=== PATIENT | female | born 1960 ===

== ENCOUNTER 2017-06-07 00:27 | Inpatient (IN) | payer BC ==
[2017-06-07] VITALS (20 sets, daily range): BP systolic 91–173; BP diastolic 42–88
[~2017-06-07] VITALS: Ht 170.2 cm; Wt 73.0 kg
[~2017-06-07 00:27] MED LIST: CHOL10005 PO; LEVO50TA86 PO
[2017-06-07] MEDS ORDERED: THROMBIN (BOVINE) 20,000 UNIT VIAL ONE (06:10)
[2017-06-07] MEDS ORDERED: ACETAMINOPHEN(*)1000 MG/100 ML 100 ML IVPB ONE (06:15)
[2017-06-07] MEDS ORDERED: PROPOFOL(*)1000 MG/100 ML VIAL 100 ML ONE (06:20)
[2017-06-07] MEDS ORDERED: METOCLOPRAMIDE 10 MG/2 ML SDV ONE (07:49)
[2017-06-07] MEDS ORDERED: LIDOCAINE MPF 1% 5 ML VIAL ONE ×2 (07:49→13:55)
[2017-06-07] MEDS ORDERED: DEXAMETHASONE SOD PHOS 10MG/ML ONE (07:49)
[2017-06-07] MEDS ORDERED: PROPOFOL EMUL(*) 10MG/ML 20 ML 0 ML ONE (07:49)
[2017-06-07] MEDS ORDERED: ONDANSETRON 4 MG/2 ML VIAL ONE ×2 (07:49→13:55)
[2017-06-07] MEDS ORDERED: fentaNYL CITR 250 MCG/5 ML AMP ONE (07:50)
[2017-06-07] MEDS ORDERED: LIDOCAINE/SOD BICARB 8.4% SYR ID ONE (09:30)
[2017-06-07] MEDS ORDERED: NORMOSOL R SOLN(*) 1000 ML BAG 1,000 ML IV PRN (09:30)
[2017-06-07] MEDS ORDERED: MIDAZOLAM 2 MG/2 ML VIAL IVP PRN (09:30)
[2017-06-07] MEDS ORDERED: FAMOTIDINE 20 MG TAB PO ONE (09:30)
[2017-06-07] MEDS ORDERED: ceFAZolin(*) 2GM/D5W 50ML 50 ML IVPB ONE (09:30)
[2017-06-07] MEDS ORDERED: ROCURONIUM BROM 10 MG/ML 5 ML ONE (11:00)
[2017-06-07] MEDS ORDERED: NS 0.9% IRRIGATION 1000ML PLCT IR ONE (11:10)
[2017-06-07] MEDS ORDERED: ePHEDrine 25 MG/5 ML DISP.SYR IVP ONE (11:53)
[2017-06-07] MEDS ORDERED: NALOXONE HCL 0.4 MG/ML VIAL ONE (13:23)
[2017-06-07] MEDS ORDERED: PROMETHAZINE 25 MG/ML 1 ML AMP ONE (13:51)
[2017-06-07] MEDS ORDERED: PROPOFOL EMUL(*) 10MG/ML 20 ML 20 ML ONE (13:55)
[2017-06-07] MEDS ORDERED: ROPIVACAINE 0.2% 20 ML VIAL ONE (13:55)
[2017-06-07] MEDS ORDERED: DEXAMETHASONE SOD 4 MG/ML VIAL ONE (13:55)
[2017-06-07] MEDS ORDERED: fentaNYL CITR 100 MCG/2 ML AMP ONE (13:56)
[2017-06-07] MEDS ORDERED: LR(*) 1000 ML BAG 1,000 ML IV PRN (14:00)
[2017-06-07] MEDS ORDERED: BENZOCAINE/MENTHOL 1 EACH LOZG PO PRN (14:00)
[2017-06-07] MEDS ORDERED: DIAZEPAM 5 MG TAB PO PRN (14:00)
[2017-06-07] MEDS ORDERED: FLUSH 10 ML SYR IVP PRN (14:00)
[2017-06-07] MEDS ORDERED: diphenhydrAMINE 25 MG CAP PO PRN (14:00)
[2017-06-07] MEDS ORDERED: ACETAMINOPHEN 500 MG TAB PO PRN (14:00)
[2017-06-07] MEDS ORDERED: oxyCODONE HCL 5 MG CAP PO PRN (14:00)
[2017-06-07] MEDS ORDERED: APAP/HYDROCODONE 325/5 TAB PO PRN (14:00)
[2017-06-07] MEDS ORDERED: ACETAMINOPHEN(*)1000 MG/100 ML 100 ML IVPB PRN (14:00)
[2017-06-07] MEDS ORDERED: BISACODYL 10 MG SUPP PR PRN (14:00)
[2017-06-07] MEDS ORDERED: MAGNESIUM HYDROXIDE* 30ML UDCP PO PRN (14:00)
[2017-06-07] MEDS ORDERED: LR(*) 1000 ML BAG 1,000 ML ONE (14:02)
--- NOTE | 2017-06-07 14:47 | RADIOLOGY IMAGING REPORT ---
[place] [facility] [place] NAME: Tate Garcia : 1960 MR: [id number] V: [id number] EXAM DATE: ORDERING PHYSICIAN: YOUSUF ABTISTA TECHNOLOGIST: Location: [facility] [place] Patient: Tate Garcia : 1960 Visit/Account:[id number] Date of Sevice: 06/07/2017 Exam type: LUMBAR SPINE 1 VIEW History: L4-5 FUSION Comparison: None. Findings: Two prone crosstable lateral intraoperative views lumbar spine were submitted demonstrating posterior fusion at L4 and L5 with the aid of pedicle screws and short segment posterior fixation rods. Surgi corina instruments and sponge markers project over the lower back on this intraoperative study. IMPRESSION: 1. As above Report Dictated By: Meghan Walker MD at 06/07/2017 2:42 PM Report E-Signed By: Meghan Walker MD at 06/07/2017 2:43 PM WSN:[email or web address]
[2017-06-07] MEDS: HYDROmorphone HCL 2 MG/ML SDV IVP PRN ×2 (15:04→18:36)
--- NOTE | 2017-06-07 15:20 | Hospitalist Consultation ---
History of Present Illness Requesting Physician Dr. Montalvo Reason for Consult Medication Management Chief Complaint s/p lumbar laminectomy History of Present Illness She was admitted s/p lumbar laminectomy. It is reported that the surgery went well and without complication. She has a medical history of hypothyroidism. 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 Home Meds Reported Medications Cholecalciferol (Vitamin D3) (VITAMIN D3) 1,000 Unit Tablet, 5000 UNIT PO DAILY , TAB 06/01/17 Levothyroxine Sodium (LEVOTHYROXINE SODIUM) 50 Mcg Tablet, 50 MCG PO QDAY, TAB 06/01/17 Allergies: Coded Allergies: codeine (Verified Allergy, Mild, HIVES, 06/01/17) meperidine (Verified Allergy, Mild, INCREASED HEART RATE, 06/01/17) secobarbital (Verified Allergy, Mild, INCREASED HEART RATE, 06/01/17) Tetracyclines (Verified Adverse Reaction, Mild, NAUSEA, 06/01/17) morphine (Verified Adverse Reaction, Mild, NAUSEA, 06/01/17) Hx Smoking: No Caffeine Intake: Tea, Soda Caffeine/Cups Per Day: 2-3 CUPS A DAY Hx Alcohol Use: Yes (RARELY) Hx Substance Use Disorder: No History of IV Drug Use: No Review of Systems All Systems Reviewed/Normal: Yes, Except as Noted Musculoskeletal: Pain Exam Vital Signs Vital Signs Date Time Temp Pulse Resp B/P (MAP) Pulse Ox O2 Delivery O2 Flow Rate FiO2 06/07/17 08:20 98.8 87 16 151/82 (105) 93 Room Air General Appearance: Alert, Awake, No Acute Distress, Afebrile Cardiovascular: Regular Rate and Rhythm Respiratory: No Respiratory Distress, Clear to Auscultation Extremities: No Edema Psych: Alert & Oriented X3, Appropriate Mood & Affect Assessment and Plan Problems: (1) S/P lumbar laminectomy Status: Acute Assessment & Plan: Followed by Dr. Montalvo. 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 Venous Thromboembolism Antithrombotics Is Pt On Any Antithrombotics?: No Prophylaxis Tx Contraindicated Pharmacological Contraindicati: Surgical Contraindication NELSON PALACIO SPOOL WINDER Jun 07, 2017 15:20
[2017-06-07] MEDS: ONDANSETRON 4 MG/2 ML VIAL IVP PRN (17:07)
[2017-06-07] MEDS: ceFAZolin(*) 2GM/D5W 50ML 50 ML IVPB SCH (19:25)
[2017-06-07] MEDS ORDERED: ONDANSETRON 4 MG/2 ML VIAL IVP ONE (20:40)
[2017-06-07] MEDS: DOCUSATE SODIUM 100 MG CAP PO SCH (21:21)
[2017-06-08] MEDS: ceFAZolin(*) 2GM/D5W 50ML 50 ML IVPB SCH ×2 (03:13→10:25)
[2017-06-08 03:14] VITALS: BP 102/52
[2017-06-08] MEDS ORDERED: LEVOTHYROXINE SOD 0.05 MG TAB PO SCH (06:00)
[2017-06-08 07:30] VITALS: BP 95/42
[2017-06-08] MEDS ORDERED: DOCU240C84 PO (08:17)
[2017-06-08] MEDS ORDERED: LOR5/325 PO (08:17)
[2017-06-08] MEDS ORDERED: DIA5 PO (08:21)
--- NOTE | 2017-06-08 09:00 | Hospitalist Progress Note ---
Subjective Progress Notes Subjective She has no complaints this morning. Patient Complains of: Cardiovascular: No: Chest Pain Respiratory: No: Shortness of Breath Physical Exam Vital Signs Date Time Temp Pulse Resp B/P (MAP) Pulse Ox O2 Delivery O2 Flow Rate FiO2 06/08/17 07:43 64 06/08/17 07:30 98.2 89 18 95/42 (59) Nasal Cannula 1.0 General Appearance: Alert, Awake, No Acute Distress, Afebrile Cardiovascular: Regular Rate and Rhythm Respiratory: No Respiratory Distress, Clear to Auscultation Psych: Alert & Oriented X3, Appropriate Mood & Affect Assessment and Plan Problems: (1) S/P lumbar laminectomy Status: Acute Assessment & Plan: Followed by Dr. Montalvo. She will be sent home with oxygen. Her room air saturation was 64% on room air. She will follow up with PCP in [place] for further evaluation of oxygen needs. 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 Exam Sepsis Risk: No Definite Risk NELSON PALACIO PAPER HANGER Jun 08, 2017 09:00
--- NOTE | 2017-06-08 09:24 | RADIOLOGY IMAGING REPORT ---
FACILITY: [facility] - [place] PATIENT NAME: Tate Garcia : 1960 MR: [id number] V: [id number] EXAM DATE: ORDERING PHYSICIAN: YOUSUF BATISTA TECHNOLOGIST: Location: Patient: Tate Garcia : 1960 Visit/Account:[id number] Date of Sevice: 06/08/2017 Exam type: LUMBAR SPINE 2 OR 3 VIEW History: One day postop L4-5 thalamic effusion Comparison: June 07, 2017. Findings: AP and lateral views lumbar spine demonstrate posterior lumbar interbody fusion at L4-5 with aid of p edicle screws and short segment posterior fixation rods. There also appears to be posterior decompre ssion at L4 There is an 8 mm anterolisthesis of L4 with respect L5 and mild disc space narrowing L4-5 . IMPRESSION: 1. As above Report Dictated By: Meghan Walker MD at 06/08/2017 8:51 AM Report E-Signed By: Meghan Walker MD at 06/08/2017 9:19 AM WSN:[email or web address]
[2017-06-08] MEDS: DOCUSATE SODIUM 100 MG CAP PO SCH (09:40)
[2017-06-08 10:34] VITALS: Ht 170.2 cm; Wt 73.0 kg
[2017-06-08] MEDS: ONDANSETRON 4 MG/2 ML VIAL IVP PRN (11:14)
--- NOTE | 2017-06-08 15:07 | OPERATIVE REPORT 1 ---
EVENT DATE: June 07, 2017 SURGEON: Sam Montalvo MD ANESTHESIOLOGIST: Eduardo Knight MD ANESTHESIA: General endotracheal anesthesia. INGOT CAR OPERATOR: CAT Kate PREOPERATIVE DIAGNOSIS L4-L5 spinal stenosis with spondylolisthesis and neurogenic claudication. POSTOPERATIVE DIAGNOSIS L4-L5 spinal stenosis with spondylolisthesis and neurogenic claudication. PROCEDURE PERFORMED L4-L5 laminectomy and posterolateral instrumented fusion. INTRAVENOUS FLUIDS 1800 mL ESTIMATED BLOOD LOSS 125 mL IMPLANTS USED Reline pedicle screws 6.5 x 40 mm from [employer] times four, 45 mm connecting rods from [employer] times two, and locking caps from [employer] times four. SPECIMENS None. DRAINS None. COMPLICATIONS None. DISPOSITION Post-anesthesia care unit. INDICATIONS FOR SURGERY Ms. Garcia is a 56-year-old female who presented with a long history of left greater than right radiating pain, numbness, and tingling in an L5 distribution. She had undergone physical therapy, trials of medications with no success. She was ultimately sent for bilateral L5 nerve root epidural steroid injections which gave her excellent relief for about three weeks. Symptoms then returned, and in addition to them being present on the left, started becoming more significant on the right. Her physical examination was essentially normal, but her imaging studies showed a grade 1 spondylolisthesis at L4-L5 with [id number] bilateral lateral recess stenosis seen at that level on the MRI. Secondary to ongoing symptoms and failure to improve with nonsurgical care, Ms. Garcia was offered and elected to undergo L4-L5 laminectomy with posterolateral instrumented fusion. CONSENT Prior to surgery, I explained in detail to the patient the possible risks of surgery. This included the risk of bleeding, infection, damage to surrounding structures, persistent and/or worsening pain, nerve root injury, spinal fluid leak, meningitis, , blindness, sexual dysfunction, autonomic nervous system dysfunction, and other unforeseen medical and surgical complications. She voiced an understanding and wished to proceed. DESCRIPTION OF PROCEDURE On the day of surgery, the patient was met in the preoperative hold area, and all questions were answered. The operative site was identified and marked by myself. The patient was brought in good condition to the operating room, and after succumbing to anesthesia, was placed in the prone position on a Cholo table. All bony protuberances and soft tissues were well padded in the standard fashion. Care was taken to maintain appropriate perfusion pressures during anesthesia. Peroperative antibiotics were administered according to the appropriate timing schedule. At the conclusion of the procedure, sponge and needle counts were correct times two. A final timeout was undertaken by members of the operating team to confirm correct patient, correct levels, and correct surgery. An incision was then made over the intended surgical levels, and sharp dissection was carried out down to the posterior elements. Soft tissues were elevated off the posterior elements in a subperiosteal manner, and a lateral radiograph was obtained for localization. The lamina of L4 was removed with a rongeur and thinned at the midline. A Lyles curette was used to undermine the superior insertion of the ligamentum flavum from the inferior aspect of the L4 lamina. The canal was enterered, and a Liz elevator was used to free any dural adhesions from surrounding bone and soft tissue prior to the use of the Kerrison punch. A 4.0 Kerrison punch was used to perform a midline decompression, and then bilateral lateral recess decompressions were performed using 3.0 and 4.0 Kerrison rongeurs. At the conclusion of the decompression, the lateral recesses as well as the foramina of L4 and L5 were well decompressed with no persistent compression of the neural elements. We then turned our attention to placement of pedicle screws. During exposure, we had cleared soft tissues off the pars interarticularis, the lateral facet, and the transverse processes of L4 and L5. We located the appropriate starting point for pedicle screws at approximately the junction of the transverse process , the superior articular process, and the pars interarticularis. The high- speed ravi was used to decorticate the entry point, and then a Lenke-type probe was used and advanced against resistance through the pedicle and into the vertebral body. A ball-tip feeler was used to probe the pedicle prior to screw placement, ensuring solid dietz superiorly, inferiorly, medially, laterally, and distally. Screws 40 mm were chosen and placed bilaterally at L4 and L5 and tested with neurophysiologic monitoring. All screws tested high and well within expected parameters to ensure absence of bony breeching. Once all screws were placed, 45 mm rods were chosen and placed within the tulips. Locking caps were placed and tightened and then finally tightened. A lateral radiograph was obtained to confirm appropriate positioning of instrumentation. The wound was then irrigated with copious sterile saline solution. A deep retractor was used to visualize the transverse processes of L4 and L5 bilaterally, and these transverse processes were decorticated with a high-speed ravi. A combination of local bone and demineralized bone matrix was then placed in these lateral gutters spanning from the L4 to the L5 transverse processes bilaterally. In addition, the high-speed ravi was used to take down the facet joints bilaterally. Meticulous hemostasis was obtained, and then the wound was then closed in layers using interrupted sutures for the deep fascia, inverted interrupted sutures for the subcutaneous tissue, and then a running subcuticular skin stitch. Sponge and needle counts were correct times two. POSTOPERATIVE CARE PLAN Ms. Garcia will remain in the hospital at least overnight. Once she has cleared physical therapy and has good pain control and is tolerating p.o. intake , she can be discharged home with a plan to follow up with me two weeks postoperatively for a wound check and examination. EWA
== END 2017-06-08 11:35 | disposition home or self-care (01) | DRG 460 ==
LOC: OR 00:27 → MED 14:50
PROVIDERS: ADMIT Orthopaedic Surgery; ATTEND Orthopaedic Surgery
PROC: 0SG0071 Fusion of Lumbar Vertebral Joint with Autologous Tissue Substitute, Posterior Approach, Posterior Column, Open Approach (ICD-10-PCS; principal; 2017-06-07 10:46)
DX: M48.062 Spinal stenosis, lumbar region with neurogenic claudication (principal); M43.16 Spondylolisthesis, lumbar region; E03.9 Hypothyroidism, unspecified; R01.0 Benign and innocent cardiac murmurs; E06.3 Autoimmune thyroiditis; Z88.5 Allergy status to narcotic agent; Z88.8 Allergy status to other drugs, medicaments and biological substances
CPT/HCPCS: 36415; 72020; 72100; 86850; 86900; 86901; 97161; J0131; J0690; J1100; J1170; J2001; J2310; J2405; J2550; J2704; J2765; J2795; J3010; J7120